=== PATIENT | female | born 1950 | race Caucasian/White ===

== ENCOUNTER → 2016-11-15 | Outpatient (CLI) | payer BC ==
--- NOTE | 2016-11-15 11:35 | RADIOLOGY REPORT PS360 ---
HUMERUS-RT HISTORY: RT HUMERUS PAIN ORDERING PHYSICIAN: Srinivasan Grant MD PATIENT AGE: 66 years COMPARISON: None FINDINGS: No fracture or dislocation. No lytic or blastic change. There is normal mineralization. The joint spaces are well-preserved. No significant degenerative/arthritic changes. No erosive changes evident. IMPRESSION: Negative, no acute finding
== END ==
LOC: RAD 08:38
DX: M79.621 Pain in right upper arm (principal)